=== PATIENT | female | born 1995 | race Two or more races ===

== ENCOUNTER 2017-04-12 18:25 | Emergency (ER) | payer BC ==
[~2017-04-12] VITALS: Ht 157.5 cm; Wt 80.2 kg
[2017-04-12 18:27] VITALS: BP 118/77
[2017-04-12] MEDS ORDERED: ONDA4TAB7 PO (18:55)
[2017-04-12] MEDS ORDERED: NITR100C56 PO (18:55)
[2017-04-12] MEDS ORDERED: BISACODYL 10 MG SUPP PR ONE (19:00)
[2017-04-12] MEDS ORDERED: BISACODYL 10 MG SUPP ONE (19:08)
[2017-04-12 19:10] LABS: HEMATOCRIT 38.4 % (34.6-47.8); WHITE BLOOD COUNT 9.1 x10^3/uL (3.4-10)
[2017-04-12 19:22] LABS: ASPARTATE AMINO TRANSFERASE 9 U/L (15-37); BLOOD UREA NITROGEN 7 mg/dL (7-18)
== END 2017-04-12 22:21 | disposition home or self-care (01) ==
LOC: ED 20:41
DX: K59.00 Constipation, unspecified (principal); O21.0 Mild hyperemesis gravidarum
CPT/HCPCS: 36415; 80053; 85025; 99284

== ENCOUNTER 2017-04-14 12:29 | Emergency (ER) | payer BC ==
[~2017-04-14] VITALS: Ht 157.5 cm; Wt 78.0 kg
[~2017-04-14 12:29] MED LIST: NITR100C56 PO; ONDA4TAB7 PO
[2017-04-14] MEDS ORDERED: ONDANSETRON 2MG/ML, 2ML ONE (12:59)
[2017-04-14] MEDS ORDERED: FAMOTIDINE 20 MG/2 ML ONE (13:00)
[2017-04-14] MEDS ORDERED: SODIUM CHLORIDE 0.9% 1,000 ML IV ONE (13:02)
[2017-04-14 13:17] LABS: HEMATOCRIT 41.8 % (34.6-47.8); HEMOGLOBIN 14.2 g/dL (11.7-16.4)
[2017-04-14] MEDS ORDERED: MAGNESIUM CITRATE 300ML ORAL SOL ONE (13:25)
[2017-04-14 13:28] LABS: BLOOD UREA NITROGEN 9 mg/dL (7-18)
[2017-04-14] MEDS ORDERED: ONDANSETRON 2MG/ML, 2ML IVPush ONE (13:30)
[2017-04-14] MEDS ORDERED: SODIUM CHLORIDE 0.9% 1,000ML IVBOLUS ONE (13:30)
[2017-04-14] MEDS ORDERED: FAMOTIDINE 20 MG/2 ML IVP ONE (13:30)
[2017-04-14] MEDS ORDERED: MAGNESIUM CITRATE 300ML ORAL SOL PO ONE (13:30)
[2017-04-14 13:32] LABS: ASPARTATE AMINO TRANSFERASE 8 U/L (15-37)
[2017-04-14 15:59] VITALS: BP 113/60
== END 2017-04-14 16:00 | disposition home or self-care (01) ==
LOC: ED 15:45
DX: O26.891 Other specified pregnancy related conditions, first trimester (principal); Z3A.01 Less than 8 weeks gestation of pregnancy; K62.89 Other specified diseases of anus and rectum
CPT/HCPCS: 36415; 80053; 81001; 85025; 87086; 96361; 96374; 96375; 99284; J2405; J7030; S0028

== ENCOUNTER 2017-04-21 11:24 | Emergency (ER) | payer BC ==
[~2017-04-21] VITALS: Ht 157.5 cm; Wt 76.2 kg
[2017-04-21] MEDS ORDERED: SODIUM CHLORIDE 0.9% 1,000 ML IV ONE (11:56)
[2017-04-21] MEDS ORDERED: SODIUM CHLORIDE 0.9% 1,000ML IVBOLUS ONE (12:00)
[2017-04-21] MEDS ORDERED: ONDANSETRON 2MG/ML, 2ML IVPush ONE (12:00)
[2017-04-21] MEDS ORDERED: FAMOTIDINE 20 MG/2 ML IVP ONE (12:00)
[2017-04-21 12:19] LABS: HEMATOCRIT 44.9 % (34.6-47.8); HEMOGLOBIN 15.3 g/dL (11.7-16.4); WHITE BLOOD COUNT 9.4 x10^3/uL (3.4-10)
[2017-04-21 12:32] LABS: ASPARTATE AMINO TRANSFERASE 9 U/L (15-37); BLOOD UREA NITROGEN 13 mg/dL (7-18)
[2017-04-21] MEDS ORDERED: METOCLOPRAMIDE 5 MG/ML, 2ML IVPush ONE (13:30)
[2017-04-21] MEDS ORDERED: DIPHENHYDRAMINE 50 MG/ML, 1ML IVPush ONE (13:30)
[2017-04-21] MEDS ORDERED: METOCLOPRAMIDE 5 MG/ML, 2ML ONE (13:34)
[2017-04-21] MEDS ORDERED: DIPHENHYDRAMINE 50 MG/ML, 1ML ONE (13:34)
[2017-04-21 14:25] VITALS: BP 133/38
== END 2017-04-21 14:41 | disposition home or self-care (01) ==
LOC: ED 13:43
DX: O21.0 Mild hyperemesis gravidarum (principal); Z3A.08 8 weeks gestation of pregnancy
CPT/HCPCS: 36415; 80053; 83690; 85025; 96361; 96374; 96375; 99285; J1200; J2765; J7030

== ENCOUNTER 2017-04-22 12:20 | Emergency (ER) | payer BC ==
[~2017-04-22] VITALS: Ht 157.5 cm; Wt 76.8 kg
[2017-04-22] MEDS ORDERED: PINK LADY ENEMA 1,000 ML PR ONE (13:30)
[2017-04-22] MEDS ORDERED: SODIUM CHLORIDE FLUSH 10ML SYR IVF ONE (13:30)
[2017-04-22] MEDS ORDERED: SODIUM CHLORIDE 0.9% 1,000ML IVBOLUS ONE (13:30)
[2017-04-22] MEDS ORDERED: ONDANSETRON 2MG/ML, 2ML IVPush ONE ×2 (13:30→16:00)
[2017-04-22 13:45] LABS: HEMATOCRIT 40.9 % (34.6-47.8); HEMOGLOBIN 14.1 g/dL (11.7-16.4)
[2017-04-22 13:57] LABS: BLOOD UREA NITROGEN 9 mg/dL (7-18)
[2017-04-22] MEDS ORDERED: ONDANSETRON 2MG/ML, 2ML ONE ×2 (14:04→15:59)
[2017-04-22] MEDS ORDERED: SODIUM CHLORIDE 0.9% 1,000 ML IV ONE (16:34)
[2017-04-22] MEDS ORDERED: ONDANSETRON ODT 4 MG ONE ×2 (16:43→16:50)
[2017-04-22] MEDS ORDERED: ONDANSETRON ODT 8 MG PO ONE (17:00)
[2017-04-22 17:52] VITALS: BP 103/54
== END 2017-04-22 18:12 | disposition home or self-care (01) ==
LOC: ED 13:50
DX: O99.281 Endocrine, nutritional and metabolic diseases complicating pregnancy, first trimester (principal); E86.0 Dehydration; O99.611 Diseases of the digestive system complicating pregnancy, first trimester; K59.00 Constipation, unspecified; Z3A.08 8 weeks gestation of pregnancy; Z98.890 Other specified postprocedural states
CPT/HCPCS: 36415; 74181; 80048; 81001; 82040; 85025; 87086; 96361; 96374; 96376; 99285; J2405; J7030; Q0162